=== PATIENT | female | born 1990 | race Two or more races ===

== ENCOUNTER 2023-06-27 16:42 | Emergency (ER) | payer MEDICAID ==
[~2023-06-27] VITALS: Ht 170.2 cm; Wt 105.0 kg
[2023-06-27 19:12] VITALS: BP 138/88; PULSE 83; RESP 18; TEMP 97.9; O2SAT 96
[2023-06-27] MEDS ORDERED: IBUPROFEN 800 MG TAB PO ONE (19:45)
[2023-06-27] MEDS ORDERED: IBUP-1456 PO (21:15)
== END 2023-06-27 21:50 | disposition home or self-care (01) ==
LOC: ER 16:42
DX: M79.671 Pain in right foot (principal); M77.31 Calcaneal spur, right foot; J45.909 Unspecified asthma, uncomplicated; K21.9 Gastro-esophageal reflux disease without esophagitis; Z79.1 Long term (current) use of non-steroidal anti-inflammatories (NSAID); Z88.1 Allergy status to other antibiotic agents; Z91.010 Allergy to peanuts
CPT/HCPCS: 73630